=== PATIENT | female | born 1965 | race Caucasian/White ===

== ENCOUNTER 2022-01-21 10:09 | Emergency (ER) | payer BC ==
[~2022-01-21] VITALS: Ht 167.6 cm; Wt 81.6 kg
[2022-01-21] MEDS ORDERED: BEBTELOVIMAB 175 MG INJ IV ONE (10:30)
== END 2022-01-21 10:50 | disposition home or self-care (01) ==
LOC: FSED 10:31
DX: R50.9 Fever, unspecified (principal); U07.1 COVID-19; R53.81 Other malaise
CPT/HCPCS: 99283